=== PATIENT | male | born 1985 | race African-American/Black ===

== ENCOUNTER → 2016-12-28 | Emergency (ER) | payer OTHER ==
[~2016-12-28] VITALS: Ht 185.4 cm; Wt 94.8 kg
[2016-12-28 18:33] VITALS: BP 136/89
== END | disposition home or self-care (01) ==
LOC: ER 18:36
DX: S00.83XA Contusion of other part of head, initial encounter (principal); W22.8XXA Striking against or struck by other objects, initial encounter; Y93.89 Activity, other specified; Y92.89 Other specified places as the place of occurrence of the external cause; Y99.9 Unspecified external cause status
CPT/HCPCS: A4606; Z7610

== ENCOUNTER 2017-01-06 21:10 | Emergency (ER) | payer SELFPAY ==
[~2017-01-06] VITALS: Ht 185.4 cm; Wt 93.4 kg
--- NOTE | 2017-01-06 21:32 | NUR ---
CALLED PT AND INFORMED "PT RAN AWAY"
--- NOTE | 2017-01-06 21:39 | NUR ---
PT NOT BACK IN LOBBY FOR TRIAGE
[2017-01-06 21:50] VITALS: BP 135/75
[2017-01-06] MEDS ORDERED: OLANZAPINE 5 MG TABLET ONE (22:17)
[2017-01-06] MEDS ORDERED: clonazePAM 1 MG TABLET ONE (22:17)
[2017-01-06] MEDS ORDERED: OLANZAPINE 5 MG TABLET PO ONE (22:30)
[2017-01-06] MEDS ORDERED: clonazePAM 1 MG TABLET PO ONE (22:30)
== END 2017-01-06 22:28 | disposition home or self-care (01) ==
LOC: ER 21:13
DX: Z76.0 Encounter for issue of repeat prescription (principal); F41.9 Anxiety disorder, unspecified; F22 Delusional disorders; F31.9 Bipolar disorder, unspecified; F17.200 Nicotine dependence, unspecified, uncomplicated
CPT/HCPCS: A4606; Z7610

== ENCOUNTER 2017-02-08 22:24 | Emergency (ER) | payer MEDICAID ==
--- NOTE | 2017-02-08 22:55 | NUR ---
CALLED FOR TRIAGE; NO ANSWER
--- NOTE | 2017-02-08 23:02 | NUR ---
CALLED AGAIN X3; NOT IN LOBBY
== END 2017-02-08 23:07 | disposition left against medical advice (07) ==
LOC: ER 22:24
DX: Z53.21 Procedure and treatment not carried out due to patient leaving prior to being seen by health care provider (principal)

== ENCOUNTER 2017-12-07 19:26 | Emergency (ER) | payer MEDICAID ==
[~2017-12-07] VITALS: Ht 180.3 cm; Wt 88.9 kg
[2017-12-07 20:40] VITALS: BP 129/77
[2017-12-07] MEDS ORDERED: HYDROCODONE/APAP 5/325MG 1 EACH TABLET ONE (22:30)
[2017-12-07] MEDS ORDERED: HYDROCODONE/APAP 5/325MG 1 EACH TABLET PO ONE (22:30)
== END 2017-12-07 22:44 | disposition home or self-care (01) ==
LOC: ER 19:30
DX: S91.312A Laceration without foreign body, left foot, initial encounter (principal); F41.9 Anxiety disorder, unspecified; F10.10 Alcohol abuse, uncomplicated; F31.9 Bipolar disorder, unspecified; Z60.2 Problems related to living alone; W22.8XXA Striking against or struck by other objects, initial encounter; Y93.89 Activity, other specified; Y92.89 Other specified places as the place of occurrence of the external cause; Y99.8 Other external cause status
CPT/HCPCS: 73630-TC; A4606; A6402; Z7610